=== PATIENT | male | born 2005 | race Caucasian/White ===

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

== ENCOUNTER → 2025-02-19 | Outpatient (CLI) | payer BC ==
[2025-02-19 15:14] VITALS: BP 154/93; PULSE 95; RESP 18; TEMP 98.5
--- NOTE | 2025-02-19 15:51 | P.SLEEP ---
History of Present Illness DATE: 02/19/2025 CONSULTATION/NEW PATIENT EVALUATION HISTORY OF PRESENT ILLNESS/SLEEP-WAKE EVALUATION: 19-year-old gentleman had b een evaluated in the sleep center for possible obstructive sleep apnea hypopnea syndrome. SLEEP SCHEDULE: Usually sleep schedule 1011 PM until 79 AM. FALLING ASLEEP: Patient has difficulties with falling asleep, has TV set in bedroom. DURING SLEEP: Patient snores, wakes up from sleep multiple times with episodes of gasping for air, nocturia, grinding teeth, dry mouth, panic attack palpitations, sweating. Positive history of restless leg symptoms. No history of hypnogogical hallucinations, sleep paralysis, or cataplexy. DURING THE DAY/WAKE STATE: In the morning patient wake up tired, has difficulties to pay attention, has problems with memory, concentration, irritability, depression, anxiety. [place] sleepiness scale is significantly increased to 17. Patient takes 2 naps during the day. PAST MEDICAL HISTORY: Hypertension, asthma, anxiety, kidney stones. PAST SURGICAL HISTORY: None. MEDICATIONS: Please see below, hydrochlorothiazide, albuterol. SOCIAL HISTORY: Please see below. FAMILY HISTORY: Please see below. REVIEW OF SYSTEMS: Snoring, multiple awakenings from sleep, sleepiness during the day. No fevers. No double vision. No recent chest pain. No shortness of breath. No abdominal pain. No bleeding episodes. No blood in urine. No seizure episodes. PHYSICAL EXAMINATION: GENERAL: A pleasant patient without any distress. VITAL SIGNS: Please see below, weight 289.6 pounds, BMI 45.2. HEENT: PERRLA, EOMI. Evaluation of oropharynx showed tongue protrudes midline, low position of soft palate Mallampati 4, restriction of nasal breathing. NECK: Supple. No JVD. Thyroid is not palpable. 20 3/4 inches in circumference. LUNGS: Clear to percussion and to auscultation. Good air exchange. No wheezing or rhonchi. HEART: S1, S2 regular. No murmurs, gallops or rubs. ABDOMEN: Soft and nontender. Bowel sounds are present. No organomegaly appreciated. EXTREMITIES: No clubbing or cyanosis. SENIOR UX DESIGNER: Awake, alert, and oriented x3. Cranial nerves 2 to 7 intact. There is no fasciculation or atrophy noted. No focal deficits observed. ASSESSMENT: 1. Snoring, multiple awakenings from sleep, extremely low position of soft palate Mallampati 3, extremely wide neck 20 and three-quarter inches in circumference, significant excessive daytime sleepiness with [place] Sleepiness Scale 17. Obstructive sleep apnea hypopnea syndrome. 2. Obesity, BMI 45.2. 3. Hypertension not on good control with several medications. 4. Asthma. 5. Anxiety. 6 . History of kidney stones. PLAN: 1. Polysomnography for evaluation of patient's breathing during sleep and possible leg movements. 2. Following plan after reading sleep study. 3. Preferable position during sleep on the side. 4. No driving if patient feels any sleepiness. Patient is aware of civil and criminal liability for unsafe driving. 5. Sleep hygiene with regular sleep time for at least 7.5-8 hours. 6. Watching and aggressive losing weight. Thank you very much for referring this patient for consultation. Sincerely, Chadd Crowell MD, PhD, FAASM. Diplomat of [employer], Sleep Medicine Board by [employer] Analyst [facility] [place] cc: Addi Gillette MD, John Whittington MD Past Medical History Past Medical History: Asthma, Hypertension Additional Past Medical History / Comment(s): Anxiety/Depression, kidney stones History of Any Multi-Drug Resistant Organisms: None Reported Past Surgical History: No Surgical Hx Reported Past Psychological History: Anxiety, Depression Smoking Status: Never smoker Past Alcohol Use History: None Reported Past Drug Use History: None Reported - Past Family History Mother Family Medical History: Hypertension Additional Family Medical History / Comment(s): Kidney stones, cholesystectomy, anxiety, back problems - pain clilnc - spondolithis Father Family Medical History: Diabetes Mellitus, Hypertension, Sleep Apnea/CPAP/BIPAP Additional Family Medical History / Comment(s): Porstate cancer (prostate removed), hospitalized for a week for a severe infection, incisional hernia Medications and Allergies Home Medications Medication Instructions Recorded Confirmed Type FLUoxetine HCL 30 mg PO DAILY 02/19/25 02/19/25 History Losartan [Cozaar] 100 mg PO DAILY 02/19/25 02/19/25 History amLODIPine 10 mg PO DAILY 02/19/25 02/19/25 History Physical Exam Vitals: Vital Signs Temp Pulse Resp BP Pulse Ox 02/19/25 15:12 98.5 F 95 18 154/93 97 Intake and Output 02/19/25 02/19/25 02/19/25 06:59 14:59 22:59 Other: Weight 131.258 kg Sleep Note - Sleep Data ESS Total: 17 - Sleep Note Sleep Note: Temperature: 98.5 F Pulse Rate: 95 Respiratory Rate: 18 Blood Pressure: 154/93 SpO2: 97 Height: 5 ft 7 in Weight: 131.258 kg BMI: Neck Circumference: 20.7
== END ==
LOC: 3 N SLEEP 14:28
PROVIDERS: ATTEND Internal Medicine
DX: G47.33 Obstructive sleep apnea (adult) (pediatric) (principal); E66.9 Obesity, unspecified; I10 Essential (primary) hypertension; J45.909 Unspecified asthma, uncomplicated; F41.9 Anxiety disorder, unspecified; Z87.442 Personal history of urinary calculi; Z68.42 Body mass index [BMI] 45.0-49.9, adult
CPT/HCPCS: 99211

== ENCOUNTER → 2025-03-31 | Outpatient (CLI) | payer BC ==
--- NOTE | 2025-04-03 17:09 | P.PCN ---
Description of Procedure: CLINICAL: A home sleep apnea test has been done for confirmation of possible obstructive sleep apnea-hypopnea syndrome. DESCRIPTION OF PROCEDURE: RESULTS: Recording time was 9 hours 9 minutes. Evaluation time was 8 hours 56 minutes. Evaluation time is sufficient for making conclusion about results of the test. Raw data of sleep recording has been reviewed and is adequate. Respiratory channel showed 0 apneas and 26 hypopneas. Apnea-hypopnea index was 2.9 per hour. Pulse rate in the range between minimum 68, maximum 132, average 91 by computer calculation. Lowest desaturation was 87%. IMPRESSION: 1. Significant respiratory abnormalities have been documented during the home sleep apnea test. 2. Patient presents with symptoms of very significant excessive daytime sleepiness with [place] Sleepiness Scale 17 and patient takes 2 naps during the day. Please see other impressions from consultation. PLAN: 1. Multiple sleep latency test for objective relation symptoms of excessive daytime sleepiness. 2. Following plan after reading the MSLT. 3. Watching losing weight. 4. Sleep hygiene with regular time in bed for at least 8 hours. 5. No driving if feeling any sleepiness. Thank you very much for allowing me to participate in the management of your patient. Sincerely, Chadd Crowell MD, PhD, FAASM Diplomat of [place] [employer] Sleep Medicine Board of [place]ator Apprentice [facility] [place] cc: Addi Gillette MD
== END ==
LOC: 3 N SLEEP 13:10
PROVIDERS: ATTEND Internal Medicine
DX: G47.33 Obstructive sleep apnea (adult) (pediatric) (principal)